=== PATIENT | male | born 1970 | race American Indian/Alaskan Native ===

== ENCOUNTER 2019-03-07 13:53 | Emergency (ER) | payer OTHER ==
--- NOTE | 2019-03-07 14:17 | Emergency Department Report ---
Blank Doc - Documentation Documentation: This is a 48-year-old male that presents with right shoulder pain. Denies any injuries. This initial assessment/diagnostic orders/clinical plan/treatment(s) is/are subject to change based on patient's health status, clinical progression and re- assessment by fellow clinical providers in the ED. Further treatment and workup at subsequent clinical providers discretion. Patient/guardians urged not to elope from the ED as their condition may be serious if not clinically assessed and managed. Initial orders include: 1- Patient sent to [facility] for further evaluation and treatment 2- xray
[2019-03-07 14:20] VITALS: BP 146/88
--- NOTE | 2019-03-07 14:50 | XRay Report ---
RIGHT SHOULDER, 3 VIEWS: HISTORY: right shoulder pain. Normal bone mineralization. No acute osseous injury or joint pathology is detected. The soft tissues are unremarkable. IMPRESSION: Right shoulder within normal limits.
[2019-03-07] MEDS ORDERED: TORADOL IM ONE (16:11)
--- NOTE | 2019-03-07 16:16 | Emergency Department Report ---
ED Extremity Problem HPI - General Chief complaint: Extremity Problem,Nontraumatic Stated complaint: (R) ARM PAIN Time Seen by Provider: 03/07/19 14:17 Source: patient Mode of arrival: Ambulatory Limitations: No Limitations - History of Present Illness Initial comments: Patient is a 48-year-old male who is presenting with right shoulder pain. 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 Patient states he was throwing quite a bit last week but does not remember any specific thing that injured his shoulder. Patient states that last night he began having intense shoulder pain which has persisted through today. Patient denies any direct trauma. He states that he has decreased range of motion secondary to pain which is 8 out of 10 in severity. Patient denies any fevers chills nausea vomiting at this time. - Related Data Previous Rx's Medication Instructions Recorded Last Taken Type Naproxen [Naprosyn] 500 mg PO Q12H PRN #14 tablet 10/08/18 Unknown Rx HYDROcodone/ACETAMINOPHEN 1 each PO Q6HR PRN #12 tablet 03/07/19 Unknown Rx [Hydrocodone-Acetamin 5-325 mg] methOCARBAMOL [Robaxin TAB] 500 mg PO Q6H PRN #14 tablet 03/07/19 Unknown Rx predniSONE [Deltasone] 20 mg PO QDAY #5 tab 03/07/19 Unknown Rx Allergies Allergy/AdvReac Type Severity Reaction Status Date / Time No Known Allergies Allergy Unverified 10/08/18 08:15 ED Review of Systems ROS: Stated complaint: (R) ARM PAIN Other details as noted in HPI Comment: All other systems reviewed and negative ED Past Medical Hx - Past Medical History Previous Medical History?: No - Surgical History Past Surgical History?: Yes Hx Appendectomy: Yes - Social History Smoking Status: Current Every Day Smoker Substance Use Type: Alcohol - Medications Home Medications: Home Medications Medication Instructions Recorded Confirmed Last Taken Type Naproxen [Naprosyn] 500 mg PO Q12H PRN #14 tablet 10/08/18 Unknown Rx HYDROcodone/ACETAMINOPHEN 1 each PO Q6HR PRN #12 tablet 03/07/19 Unknown Rx [Hydrocodone-Acetamin 5-325 mg] methOCARBAMOL [Robaxin TAB] 500 mg PO Q6H PRN #14 tablet 03/07/19 Unknown Rx predniSONE [Deltasone] 20 mg PO QDAY #5 tab 03/07/19 Unknown Rx ED Physical Exam - General Limitations: No Limitations General appearance: alert, in no apparent distress - Head Head exam: Present: atraumatic, normocephalic - Eye Eye exam: Present: normal appearance - ENT ENT exam: Present: mucous membranes moist - Neck Neck exam: Present: normal inspection - Respiratory Respiratory exam: Present: normal lung sounds bilaterally. Absent: respiratory distress, wheezes, rales, rhonchi - Cardiovascular Cardiovascular Exam: Present: regular rate, normal rhythm. Absent: systolic murmur, diastolic murmur, rubs, gallop - GI/Abdominal GI/Abdominal exam: Present: soft, normal bowel sounds - Rectal Rectal exam: Present: deferred - Extremities Exam Extremities exam: Present: normal inspection, tenderness (patient's right shoulder exam is generalized tenderness. Patient has no warmth or skin changes. Patient has pain with minimal ranging.). Absent: full ROM, joint swelling - Back Exam Back exam: Present: normal inspection - Neurological Exam Neurological exam: Present: alert, oriented X3 - Psychiatric Psychiatric exam: Present: normal affect, normal mood - Skin Skin exam: Present: warm, dry, intact, normal color. Absent: rash ED Course Vital Signs 03/07/19 14:19 Temperature 98.3 F Pulse Rate 87 Respiratory 17 Rate Blood Pressure 146/88 O2 Sat by Pulse 99 Oximetry ED Medical Decision Making - Radiology Data [facility] [address] [place] [address] XRay Report Signed Patient: ARAM LOPEZ MR#: [id number] : 1970 Acct:[id number] Age/Sex: 48 / M ADM Date: 03/07/19 Loc: ED Attending Dr: Ordering Physician: GERARDO GARCIA NP Date of Service: 03/07/19 Procedure(s): XR shoulder 2+V RT Accession Number(s): [id number] cc: GERARDO GARCIA NP Fluoro Time In Minutes: RIGHT SHOULDER, 3 VIEWS: HISTORY: right shoulder pain. Normal bone mineralization. No acute osseous injury or joint pathology is detected. The soft tissues are unremarkable. IMPRESSION: Right shoulder within normal limits. Transcribed By: TTR Dictated By: RIGO MICHEL JR, MD Electronically Authenticated By: RIGO MICHEL JR, MD Signed Date/Time: 03/07/191444 DD/ 44 TD/TT: 03/07/191444 - Medical Decision Making Patient likely with acute bursitis secondary to overuse. X-ray is within normal limits. Patient's symptoms placed in a sling even meds for symptomatically as well as [place] instruction. Critical care attestation.: If time is entered above; I have spent that time in minutes in the direct care of this critically ill patient, excluding procedure time. ED Disposition Clinical Impression: Acute shoulder bursitis Qualifiers: Laterality: right Qualified Code(s): M75.51 - Bursitis of right shoulder Disposition: DC-01 TO HOME OR SELFCARE Is pt being admited?: No Does the pt Need Aspirin: No Condition: Stable Instructions: Shoulder Bursitis (ED) Referrals: BUCK COX MD [Staff Physician] - 3-5 Days Time of Disposition: 16:16
== END 2019-03-07 17:15 | disposition home or self-care (01) ==
LOC: ED 13:53
DX: M75.51 Bursitis of right shoulder (principal); Z90.49 Acquired absence of other specified parts of digestive tract; F17.200 Nicotine dependence, unspecified, uncomplicated
CPT/HCPCS: 73030; 96372; 99283; J1885